=== PATIENT | female | born 1990 | race Caucasian/White ===

== ENCOUNTER 2018-10-11 10:23 | Emergency (ER) | payer MEDICAID, OTHER ==
--- NOTE | 2018-10-11 11:20 | EDM.PDOC ---
ED HPI GENERAL MEDICAL PROBLEM - General Chief Complaint: [employer] Problem Stated Complaint: 11 WKS , SPOTTING Time Seen by Provider: 10/11/18 11:18 Source of Information: Reports: Patient History Limitations: Reports: No Limitations - History of Present Illness INITIAL COMMENTS - FREE TEXT/NARRATIVE: pt arrived with vag spotting. She has very mild cramping She states this is her second preg. Onset: Other ( started yesterday. ) Duration: Hour(s): Associated Symptoms: Reports: No Other Symptoms - Related Data Allergies Allergy/AdvReac Type Severity Reaction Status Date / Time No Known Allergies Allergy Verified 10/11/18 11:02 Home Meds: Home Meds metFORMIN HCl [Metformin HCl ER] 1,000 mg PO BEDTIME 10/11/18 [History] metFORMIN HCl [Metformin HCl ER] 500 mg PO DAILY 10/11/18 [History] Past Medical History HEENT History: Reports: Impaired Vision [employer] History: Reports: Musculoskeletal History: Reports: Fracture Neurological History: Reports: Migraines Psychiatric History: Reports: Anxiety, Depression Endocrine/Metabolic History: Reports: Diabetes, Type II - Past Surgical History HEENT Surgical History: Reports: Adenoidectomy, Tonsillectomy Social & Family History - Tobacco Use Smoking Status *Q: Never Smoker - Recreational Drug Use Recreational Drug Use: No ED ROS GENERAL - Review of Systems Review Of Systems: See Below Constitutional: Reports: No Symptoms HEENT: Reports: No Symptoms Respiratory: Reports: No Symptoms Cardiovascular: Reports: No Symptoms Endocrine: Reports: No Symptoms GI/Abdominal: Reports: No Symptoms : Reports: Other ( vag spotting at 11 weeks. ) Musculoskeletal: Reports: No Symptoms Skin: Reports: No Symptoms Neurological: Reports: No Symptoms Psychiatric: Reports: No Symptoms ED EXAM - Physical Exam Exam: See Below Text/Narrative:: pt arrived with a history of some very lite spotting. She is not having severe cramping. . She believes she is 11 weeks . Exam Limited By: No Limitations General Appearance: Alert, Mild Distress Ears: Normal TMs Nose: Normal Inspection Throat/Mouth: Normal Inspection Head: Atraumatic Neck: Normal Inspection Respiratory/Chest: No Respiratory Distress Cardiovascular: Regular Rate, Rhythm GI/Abdominal Exam: Soft, Non-Tender (Female) Exam: Other ( no external irritation) Back Exam: Normal Inspection Extremities: Normal Inspection Neurological: Alert, Oriented, Normal Cognition Psychiatric: Anxious Course - Vital Signs Last Recorded V/S: Last Vital Signs Temp 35.9 C 10/11/18 11:01 Pulse 77 10/11/18 11:01 Resp 18 10/11/18 11:01 BP 135/76 10/11/18 11:01 Pulse Ox 100 10/11/18 11:01 - Orders/Labs/Meds Orders: Active Orders 24 hr Category Date Time Status CULTURE URINE [RM] Stat Lab 10/11/18 12:04 Results Labs: Laboratory Tests 10/11/18 10/11/18 10/11/18 Range/Units 11:26 11:26 11:26 WBC 7.3 (4.5-11.0) K/uL RBC 4.59 (3.30-5.50) M/uL Hgb 12.6 (12.0-15.0) g/dL Hct 38.1 (36.0-48.0) % MCV 83 (80-98) fL MCH 28 (27-31) pg MCHC 33 (32-36) % Plt Count 211 (150-400) K/uL Neut % (Auto) 62 (36-66) % Lymph % (Auto) 29 (24-44) % [place] % (Auto) 8 H (2-6) % Eos % (Auto) 1 L (2-4) % Baso % (Auto) 0 (0-1) % Sodium 137 L (140-148) mmol/L Potassium 4.3 (3.6-5.2) mmol/L Chloride 103 (100-108) mmol/L Carbon Dioxide 25 (21-32) mmol/L Anion Gap 13.3 (5.0-14.0) mmol/L BUN 10 (7-18) mg/dL Creatinine 0.7 (0.6-1.0) mg/dL Est Cr Clr Drug Dosing 132.54 mL/min Estimated GFR (MDRD) > 60 (>60) Glucose 92 (74-106) mg/dL Calcium 9.3 (8.5-10.1) mg/dL Total Bilirubin 0.6 (0.2-1.0) mg/dL AST 13 L (15-37) U/L ALT 22 (12-78) U/L Alkaline Phosphatase 48 (46-116) U/L Total Protein 7.2 (6.4-8.2) g/dL Albumin 3.6 (3.4-5.0) g/dL Globulin 3.6 H (2.3-3.5) g/dL Albumin/Globulin Ratio 1.0 L (1.2-2.2) HCG, Quant 28752 H (0-6) mIU/mL Urine Color Urine Appearance Urine pH (4.5-8.0) Ur Specific [place] (1.008-1.030) Urine Protein (NEGATIVE) mg/dL Urine Glucose (UA) (NEGATIVE) mg/dL Urine Ketones (NEGATIVE) mg/dL Urine Occult Blood (NEGATIVE) Urine Nitrite (NEGATIVE) Urine Bilirubin (NEGATIVE) Urine Urobilinogen (NORMAL) mg/dL Ur Leukocyte Esterase (NEGATIVE) Urine RBC (0-5) Urine WBC (0-5) Ur Epithelial Cells Amorphous Sediment Urine Bacteria Urine Mucus 10/11/18 Range/Units 11:31 WBC (4.5-11.0) K/uL RBC (3.30-5.50) M/uL Hgb (12.0-15.0) g/dL Hct (36.0-48.0) % MCV (80-98) fL MCH (27-31) pg MCHC (32-36) % Plt Count (150-400) K/uL Neut % (Auto) (36-66) % Lymph % (Auto) (24-44) % [place] % (Auto) (2-6) % Eos % (Auto) (2-4) % Baso % (Auto) (0-1) % Sodium (140-148) mmol/L Potassium (3.6-5.2) mmol/L Chloride (100-108) mmol/L Carbon Dioxide (21-32) mmol/L Anion Gap (5.0-14.0) mmol/L BUN (7-18) mg/dL Creatinine (0.6-1.0) mg/dL Est Cr Clr Drug Dosing mL/min Estimated GFR (MDRD) (>60) Glucose (74-106) mg/dL Calcium (8.5-10.1) mg/dL Total Bilirubin (0.2-1.0) mg/dL AST (15-37) U/L ALT (12-78) U/L Alkaline Phosphatase (46-116) U/L Total Protein (6.4-8.2) g/dL Albumin (3.4-5.0) g/dL Globulin (2.3-3.5) g/dL Albumin/Globulin Ratio (1.2-2.2) HCG, Quant (0-6) mIU/mL Urine Color Yellow Urine Appearance Cloudy Urine pH 5.0 (4.5-8.0) Ur Specific [place] 1.015 (1.008-1.030) Urine Protein Negative (NEGATIVE) mg/dL Urine Glucose (UA) Normal (NEGATIVE) mg/dL Urine Ketones Negative (NEGATIVE) mg/dL Urine Occult Blood Moderate (NEGATIVE) Urine Nitrite Negative (NEGATIVE) Urine Bilirubin Negative (NEGATIVE) Urine Urobilinogen Normal (NORMAL) mg/dL Ur Leukocyte Esterase Moderate (NEGATIVE) Urine RBC 5-10 H (0-5) Urine WBC 10-20 H (0-5) Ur Epithelial Cells Many Amorphous Sediment Not seen Urine Bacteria Many Urine Mucus Not seen - Re-Assessments/Exams Free Text/Narrative Re-Assessment/Exam: 10/11/18 12:45 us showed a normal looking fetus, no evidence of bleeding. good heart tones., her lab was good except she looked like she has a UTI, 10/12/18 07:31 Departure - Departure Time of Disposition: 12:39 Disposition: Home, Self-Care 01 Condition: Fair Clinical Impression: Vaginal spotting, First trimester bleeding, UTI (urinary tract infection) - Discharge Information Instructions: Urinary Tract Infection, Adult, [id number], Vaginal Bleeding During , First Trimester, [id number] Referrals: PCP,None [Primary Care Provider] - Forms: ED Department Discharge Care Plan Goals: push fluids, low activity, send a copy of labs with the pt to take her regular DR, See regular ob provider Sat or Saturday. Amoxicillin 500mg tid - My Orders Last 24 Hours: My Active Orders 10/11/18 12:04 CULTURE URINE [RM] Stat - Assessment/Plan Last 24 Hours: My Active Orders 10/11/18 12:04 CULTURE URINE [RM] Stat
--- NOTE | 2018-10-11 14:25 | CRLUS ---
INDICATION : Eleven week . Spotting. TECHNIQUE : Ultrasound of the early obstetrical ultrasound transabdominal. Grayscale and color doppler. Spectral arterial wave forms of the ovaries to evaluate arterial blood flow. No comparison FINDINGS: Uterus: 13 x 6 x 8 cm. Intrauterine gestational sac. The mean sac diameter is 4.6 cm. Sonographic age 10 weeks 3 days. Intrauterine with pole. [place]-rump length: 3.9 cm 10 weeks 6 days. cardiac activity: Present, heart rate 153 beats per minute by M-mode Doppler. Yolk sac: The yolk sac appears normal measuring 7 mm. Right ovary: Sonolucent cysts measuring 2.8 cm. Intact spectral arterial waveform. Left ovary: Sonographically normal intact spectral arterial waveform. Cul-de-sac: No free fluid. IMPRESSION: 1. Early intrauterine . The ultrasound age is 10 weeks and 6 days. The estimated delivery date by ultrasound is 05/03/2019. This correlates with the dates established from the LMP at 11 weeks. 2. No visualized abnormality. No visible perigestational fluid collection. 3. Incidental right ovarian cyst. Dictated by Daniel Lin MD @ Oct 11 2018 2:18PM Signed by Dr. Daniel Lin @ Oct 11 2018 2:24PM
== END 2018-10-11 13:07 | disposition home or self-care (01) ==
LOC: JP.ED 10:23
DX: O23.41 Unspecified infection of urinary tract in pregnancy, first trimester (principal); O26.851 Spotting complicating pregnancy, first trimester; O24.311 Unspecified pre-existing diabetes mellitus in pregnancy, first trimester; E11.9 Type 2 diabetes mellitus without complications; Z98.890 Other specified postprocedural states; Z3A.11 11 weeks gestation of pregnancy
CPT/HCPCS: 36415; 76801; 80053; 81001; 84702; 85025; 87086; 99283; 99284-25